=== PATIENT | male | born 1955 | race Caucasian/White ===

== ENCOUNTER → 2021-10-12 | Outpatient (CLI) | payer BC ==
[~2021-10-12] MED LIST: REGADENOSON 0.4 MG/5 ML SYRINGE IV PRN
--- NOTE | 2021-10-12 12:10 | NM ---
EXAMINATION TYPE: NM stress lexiscan cardiolite DATE OF EXAM: 10/12/2021 COMPARISON: NONE HISTORY: I 25.10 TECHNIQUE: After the intravenous administration of 9.7 mCi Tc 99m Sestamibi - Cardiolite resting SPE CT images acquired 45 minutes post injection. The patient received 0.4mg Lexiscan, 23.9 mCi Tc 99m Sestamibi - Stress images obtained [address] injection FINDINGS: Review of stress and rest SPECT images demonstrates decreased uptake along the inferior wall and apex of the left ventricle on stress and rest images, there is decreased uptake along the cardiac apex on stress as compared to rest images. Gated analysis shows normal wall motion with an estimated left v entricular ejection fraction of 66 %. IMPRESSION: No scintigraphic evidence for reversible ischemia. Consider echocardiographic correlation for elevate d ejection fraction. Evidence of prior infarct.
--- NOTE | 2021-10-12 12:38 | CA ---
Lexiscan Nuclear Stress Test Report Name: Frank Ortega Exam Date: 10/12/2021 09:52 Exam Location: [facility] Ht (in): 71 Wt (lb): 220 BSA: 2.20 Ordering Phys: Elijah Pelletier MD Referring Phys: Elijah Pelletier MD Technologist: Magdaleno Leiva Age: 65 Gender: M : 1955 Procedure CPT: Indications: I25.10 ICD-10 Codes: Patient History: CHEST PAIN Medications: LISINOPRIL, METOPROLOL, KRADUM, ALLERGY OTC Meds past 24 hrs: Pretest Chest Pain: STRESS TEST Lexiscan Protocol Exercise Duration (min:sec): 01:[address] Depressions (mm): Angina Score: Flores Score: Resting HR (bpm): 72 Peak HR (bpm): 100 Resting BP (mmHg): 148 / 89 Peak BP (mmHg): 139 / 83 MPHR: 156 Target HR: 133 % MPHR: 64 METS: 1.0 Total Dose: Peak Dose: Atropine: Double Product: 47690 BP Response: Stress Termination: NA Stress Symptoms: DIFFICULTY IN BREATHING,HEADACHE,STOMACH ACHE Stress Summary: ECG ANALYSIS Resting ECG: Stress ECG: CONCLUSIONS Baseline heart rate 71 beats a minute, Baseline blood pressure 148/89 mmHg Frequent PVCs Patient received Lexiscan infusion per protocol No significant change in heart rate and blood pressure PVCs continued No nonsustained ventricular tachycardia No ST segment abnormalities Nuclear portion will be reported separately Dr. Anson Walters MD (Electronically Signed) Final Date: 12 Oct 2021 12:37
== END | disposition home or self-care (01) ==
LOC: RADNMMAIN 08:24
PROVIDERS: ATTEND Family Medicine
DX: I25.10 Atherosclerotic heart disease of native coronary artery without angina pectoris (principal)
CPT/HCPCS: 93017; 78452; A9500; J2785

== ENCOUNTER → 2022-07-09 | Outpatient (CLI) | payer BC | END | disposition home or self-care (01) | LOC: LABPAT 12:13 | PROVIDERS: ATTEND Orthopaedic Surgery | DX: Z01.812 Encounter for preprocedural laboratory examination (principal); Z22.322 Carrier or suspected carrier of Methicillin resistant Staphylococcus aureus; M17.12 Unilateral primary osteoarthritis, left knee | CPT/HCPCS: 87070 ==